=== PATIENT | female | born 1945 | race Caucasian/White ===

== ENCOUNTER 2017-06-14 08:06 | Day surgery (SDC) | payer MEDICARE, MEDICAID ==
[2017-06-10 14:57] LABS: BASOPHILS % (AUTO) 0.4 % (0-1); EOSINOPHILS # (AUTO) 0.2 X10'3 (0-0.9); EOSINOPHILS % (AUTO) 4.1 % (0-6); LYMPHOCYTES # (AUTO) 1.4 X10'3 (1.1-4.8); MEAN CORPUSCULAR HEMOGLOBIN 28.2 PG (27.0-31.0); MEAN CORPUSCULAR HGB CONC 31.9 % (33.0-36.5); MEAN CORPUSCULAR VOLUME 88.4 FL (78-98); MEAN PLATELET VOLUME 8.4 FL (7.4-10.4); MONOCYTES # (AUTO) 0.4 X10'3 (0-0.9); MONOCYTES % (AUTO) 6.8 % (2-12); NEUTROPHILS # (AUTO) 3.2 X10'3 (1.8-7.7); NEUTROPHILS % (AUTO) 61.7 % (42-75); PRE OP HEMATOCRIT 32.9 % (35.0-45.0); PRE OP PLATELET COUNT 214 X10'3 (140-440); RED BLOOD COUNT 3.73 X10'6 (4.20-5.60)
[2017-06-10 15:08] LABS: PRE OP PROTIME 10.7 SECONDS (9.0-12.0)
[2017-06-10 15:09] LABS: PRE OP HEMOGLOBIN 10.5 g/dL (12.0-16.0)
[2017-06-10 15:12] LABS: ALBUMIN/GLOBULIN RATIO 0.9 (1.1-1.5); ALKALINE PHOSPHATASE 105 IU/L (46-116); BLOOD UREA NITROGEN 20 MG/DL (7-18); BUN/CREATININE RATIO 33.3 (6.6-38.0); CALCIUM 7.9 MG/DL (8.5-10.1); CHLORIDE 113 MMOL/L (99-107); PRE OP ALT 19 U/L (30-65); PRE OP ANION GAP 6 (8-16); PRE OP AST 18 U/L (10-37); PRE OP BILIRUB, TOTAL 0.2 MG/DL (0.0-1.0); PRE OP GLUCOSE 106 MG/DL (70-104); PRE OP POTASSIUM 4.3 MMOL/L (3.4-5.1); PRE OP SODIUM 145 MMOL/L (135-145); TOTAL CARBON DIOXIDE 26.4 MMOL/L (24-32); TOTAL PROTEIN 6.2 G/DL (6.4-8.2); eGFR > 90 ML/MIN
[2017-06-10 15:14] LABS: HEMOGLOBIN A1C 5.3 % (4.5-6.2)
[~2017-06-14] VITALS: Ht 149.9 cm; Wt 56.8 kg
[2017-06-14] VITALS (22 sets, daily range): BP systolic 98–170; BP diastolic 53–106
[2017-06-14] MEDS: HYDROmorphone/NS 1 mg/ml CADD 50 ML IV SCH ×6 (01:00→23:00)
[~2017-06-14 08:06] MED LIST: ASPI1TAB14 PO; BUPR8TAB4 SL; CALC0.253 PO; DIT5T PO; DOCU100C40 PO; FERR324T4 PO; FURO-150 PO; IBUP-1984 PO; LISI-604 PO; LOPE2CAP PO; PARO20TA6 PO; VIT B12; famotidine 20mg tablet PO ONE
[2017-06-14] MEDS ORDERED: CEFOXITIN 1000 MG in NS IV.SOLN 100 ML IV ONE (08:35)
[2017-06-14] MEDS: ringers solution, lacted 1,000 ML IV SCH ×4 (09:00→23:42)
[2017-06-14] MEDS ORDERED: ceFAZolin 1000mg inj ONE (09:45)
[2017-06-14] MEDS ORDERED: vasoPRESSIN 20 units/ml inj. ONE (09:45)
[2017-06-14] MEDS ORDERED: clindamycin phosphate 40gm vag cream ONE (09:45)
[2017-06-14] MEDS ORDERED: albuterol 2.5 MG/3 ML nebule ONE (10:04)
[2017-06-14] MEDS ORDERED: ipratropium/albuterol 3ml nebule NEB PRN (10:05)
[2017-06-14] MEDS ORDERED: sevoflurane 250ml liquid IH ONE (10:24)
[2017-06-14] MEDS ORDERED: fentaNYL/PF 50MCG/1 ML 2ML syringe ONE ×3 (10:27→11:47)
[2017-06-14] MEDS ORDERED: albuterol 60 PUFF/8GM Inhaler IH ONE (10:38)
[2017-06-14] MEDS ORDERED: fluoroscein sod 10% (100mg/ml) 5ml vial ONE (10:50)
[2017-06-14] MEDS ORDERED: propofol inj 20 ML IV ONE (10:50)
[2017-06-14] MEDS ORDERED: dexamethasone sod phosphate 4mg/ml inj. ONE (10:50)
[2017-06-14] MEDS ORDERED: LIDOcaine 2% (20mg/ml) 5ml vial ONE (10:50)
[2017-06-14] MEDS ORDERED: ondansetron/PF 4mg/2ml inj ONE (10:50)
[2017-06-14] MEDS ORDERED: ringers solution, lacted 1,000 ML IV SCH (11:13)
[2017-06-14] MEDS ORDERED: ondansetron/PF 4mg/2ml inj IV PRN ×2 (11:15→11:50)
[2017-06-14] MEDS ORDERED: HYDROmorphone 1 mg/ml syringe IV PRN (11:15)
[2017-06-14] MEDS ORDERED: furosemide 40mg/4ml inj ONE (11:44)
[2017-06-14] MEDS ORDERED: temazepam 15mg capsule PO PRN (11:50)
[2017-06-14] MEDS ORDERED: albuterol 2.5 MG/3 ML nebule NEB PRN (11:50)
[2017-06-14] MEDS ORDERED: HYDROcodone/acetaminophen 5mg/325mg tablet PO PRN ×2 (11:50)
[2017-06-14] MEDS ORDERED: naloxone 0.4 mg/ml inj IV PRN (11:50)
[2017-06-14] MEDS ORDERED: diphenhydrAMINE 50 mg/ml inj IV PRN (11:50)
[2017-06-14] MEDS ORDERED: ketorolac tromethamine 15mg/ml inj. IV PRN (11:50)
[2017-06-14] MEDS ORDERED: normal saline 500ml IV soln 500 ML IV PRN (11:50)
[2017-06-14] MEDS ORDERED: CADD PCA waste documentation MC PRN (11:50)
[2017-06-14] MEDS ORDERED: furosemide 20MG tablet PO PRN (15:05)
[2017-06-15] MEDS: HYDROmorphone/NS 1 mg/ml CADD 50 ML IV SCH ×6 (01:00→09:47)
[2017-06-15] MEDS: ringers solution, lacted 1,000 ML IV SCH ×2 (03:49→09:50)
[2017-06-15 05:41] LABS: BASOPHILS % (AUTO) 0.5 % (0-1); EOSINOPHILS # (AUTO) 0.2 X10'3 (0-0.9); EOSINOPHILS % (AUTO) 2.3 % (0-6); HEMATOCRIT 28.8 % (35.0-45.0); LYMPHOCYTES # (AUTO) 1.8 X10'3 (1.1-4.8); LYMPHOCYTES % (AUTO) 23.2 % (21-51); MEAN CORPUSCULAR HEMOGLOBIN 28.1 PG (27.0-31.0); MEAN CORPUSCULAR HGB CONC 31.4 % (33.0-36.5); MEAN CORPUSCULAR VOLUME 89.6 FL (78-98); MEAN PLATELET VOLUME 9.3 FL (7.4-10.4); MONOCYTES # (AUTO) 0.5 X10'3 (0-0.9); MONOCYTES % (AUTO) 6.3 % (2-12); NEUTROPHILS # (AUTO) 5.3 X10'3 (1.8-7.7); NEUTROPHILS % (AUTO) 67.7 % (42-75); PLATELET COUNT 180 X10'3 (140-440); RED BLOOD COUNT 3.22 X10'6 (4.20-5.60); RED CELL DISTRIBUTION WIDTH 17.4 % (11.5-14.5); WHITE BLOOD COUNT 7.9 X10'3 (4.5-11.0)
[2017-06-15 07:00] VITALS: BP 141/88
[2017-06-15] MEDS ORDERED: lisinopril 5mg tablet PO SCH (08:00)
[2017-06-15] MEDS ORDERED: PARoxetine 20mg tablet PO SCH (08:00)
[2017-06-15 11:29] VITALS: BP 141/84
== END 2017-06-15 14:10 | disposition home or self-care (01) ==
LOC: PAS 08:06 → SUR 3N 11:49 → PAS 06-15 14:10
PROVIDERS: ATTEND Specialist
DX: N81.11 Cystocele, midline (principal); N32.89 Other specified disorders of bladder; N39.3 Stress incontinence (female) (male); L57.0 Actinic keratosis; N30.00 Acute cystitis without hematuria; Z98.84 Bariatric surgery status; M19.90 Unspecified osteoarthritis, unspecified site; D64.89 Other specified anemias; F32.89 Other specified depressive episodes; E78.00 Pure hypercholesterolemia, unspecified; F41.8 Other specified anxiety disorders; E11.9 Type 2 diabetes mellitus without complications; E78.4 Other hyperlipidemia; I10 Essential (primary) hypertension; E66.9 Obesity, unspecified
CPT/HCPCS: 36415; 52204; 57240; 57288; 71045; 80053; 83036; 85025; 85610; 85730; 86885; 86900; 86901; 87070; 94640; 94760; A4315; A4355; A6255; C1771; J0690; J0694; J1100; J1170; J1885; J1940; J2001; J2270; J2405; J2704; J3010; J3490; J7030; J7120; 88302; 88305; A6250; A7000